=== PATIENT | female | born 1950 | race African-American/Black ===

== ENCOUNTER 2017-04-08 19:30 | Emergency (ER) | payer MEDICARE | END 2017-04-08 22:45 | disposition home or self-care (01) | LOC: FER 19:30 | DX: M25.562 Pain in left knee (principal); I10 Essential (primary) hypertension; R26.2 Difficulty in walking, not elsewhere classified; E66.9 Obesity, unspecified; Z91.013 Allergy to seafood; Z91.040 Latex allergy status; Z79.82 Long term (current) use of aspirin; Z79.899 Other long term (current) drug therapy | CPT/HCPCS: J1885; J2270 ==

== ENCOUNTER 2021-06-12 13:45 | Day surgery (SDCO) | payer MEDICARE ==
[~2021-06-12] VITALS: Ht 162.6 cm; Wt 164.7 kg
[~2021-06-12 13:45] MED LIST: ALDACTONE25 MG PO; ASPIRIN CHEWABL81 MG PO; ASPIRIN325 MG PO; CERTAGEN1 EACH PO; FEOSOL325 MG PO; HYZAAR 50-12.51 EACH PO; LAXATIVE SUPPOS10 MG PR; MEDROL 4MG DOSEP4 MG PO; PERCOCET 5-3251 EACH PO; PROZAC20 MG PO; SENOKOT-S TABL1 EACH PO; VERAPAMIL ER240 MG PO; VOLTAREN **OUT75 MG PO; ZOCOR20 MG PO; ZPAK PO
[2021-06-12 14:52] LABS: BASOPHIL 0.8 % (0-2); EOSINOPHIL 4.7 % (0-7); HCT 39.2 % (37.0-47.0); HGB 12.5 g/dl (12.5-16.0); LYMPHOCYTE 31.5 % (15-48); MCH 29.3 pg (25.0-31.0); MCHC 31.9 g/dL (32.0-36.0); MONOCYTE 9.4 % (0-12); MPV 11.1 fL (6.0-9.5); NEUTROPHIL 53.1 % (41-80); NRBC 0; PLT 243 K/uL (150-400); RBC 4.26 M/uL (4.20-5.40); WBC 6.4 K/uL (4.0-10.5)
[2021-06-12 15:10] LABS: PRO-BNP 22 pg/mL (<125)
[2021-06-12 15:11] LABS: ALBUMIN 3.5 g/dL (3.4-5.0); BILIRUBIN - TOTAL 0.3 mg/dL (0.2-1.0); BUN/CREAT RATIO (CALC) 14.7 RATIO; CREATININE 1.09 mg/dL (0.51-0.95); GLOBULIN (CALCULATION) 3.3 g/dL; POTASSIUM 3.5 mmol/L (3.5-5.1); TOTAL PROTEIN 6.8 g/dL (6.4-8.2)
[2021-06-12] MEDS ORDERED: HCTZ12.5 MG PO (22:44)
[2021-06-12] MEDS ORDERED: VERAPAMIL SR240 MG PO (22:45)
[2021-06-12] MEDS ORDERED: LASIX40 MG PO (22:50)
[2021-06-12] MEDS ORDERED: ZOCOR20 MG PO (22:51)
[2021-06-12] MEDS ORDERED: ASPIRIN EC81 MG PO (22:51)
[2021-06-12] MEDS ORDERED: COLACE100 MG PO (22:51)
[2021-06-12] MEDS ORDERED: COZAAR50 MG PO (22:52)
[2021-06-12] MEDS ORDERED: CYMBALTA 30MG C30 MG PO (22:52)
[2021-06-12] MEDS ORDERED: PERCOCET 7.5/321 TAB PO (22:53)
[2021-06-13 07:38] LABS: BASOPHIL 0.5 % (0-2); EOSINOPHIL 3.9 % (0-7); HCT 36.5 % (37.0-47.0); HGB 11.6 g/dl (12.5-16.0); MCH 29.2 pg (25.0-31.0); MCHC 31.8 g/dL (32.0-36.0); MCV 91.9 fL (78.0-100.0); MONOCYTE 10.3 % (0-12); MPV 11.3 fL (6.0-9.5); NRBC 0; PLT 193 K/uL (150-400); RBC 3.97 M/uL (4.20-5.40); WBC 6.1 K/uL (4.0-10.5)
[2021-06-13 08:04] LABS: BILIRUBIN - TOTAL 0.5 mg/dL (0.2-1.0); BUN/CREAT RATIO (CALC) 14.3 RATIO; CREATININE 1.05 mg/dL (0.51-0.95); GLOBULIN (CALCULATION) 3.1 g/dL; POTASSIUM 3.7 mmol/L (3.5-5.1); TOTAL PROTEIN 6.1 g/dL (6.4-8.2)
--- NOTE | 2021-06-13 15:04 | NUR ---
1504 PT DISCHARGE INSTRUCTIONS REVIEWED WITH PT, VERBALIZED UNDERSTANDING. IV DC'D AND TELE DC'D AT THIS TIME.
== END 2021-06-13 16:08 | disposition home or self-care (01) ==
LOC: FER 13:45 → FMS 18:42
PROVIDERS: Nurse Practitioner; Physician Assistant; ADMIT Internal Medicine
DX: R07.89 Other chest pain (principal); G89.29 Other chronic pain; M25.512 Pain in left shoulder; M54.9 Dorsalgia, unspecified; I12.9 Hypertensive chronic kidney disease with stage 1 through stage 4 chronic kidney disease, or unspecified chronic kidney disease; N18.2 Chronic kidney disease, stage 2 (mild); G47.33 Obstructive sleep apnea (adult) (pediatric); E78.5 Hyperlipidemia, unspecified; M19.90 Unspecified osteoarthritis, unspecified site; F41.9 Anxiety disorder, unspecified; F32.9 Major depressive disorder, single episode, unspecified; Z99.89 Dependence on other enabling machines and devices; Z87.891 Personal history of nicotine dependence; Z91.013 Allergy to seafood; Z91.041 Radiographic dye allergy status; Z91.040 Latex allergy status; Z79.82 Long term (current) use of aspirin; Z79.891 Long term (current) use of opiate analgesic; Z79.899 Other long term (current) drug therapy; Z20.822 Contact with and (suspected) exposure to COVID-19
CPT/HCPCS: 36415; 71045; 80053; 80061; 83036; 83880; 84484; 85025; 93005; G0378; U0002